=== PATIENT | female | born 1995 ===

== ENCOUNTER 2025-01-30 18:48 | Emergency (ER) | payer OTHER ==
[~2025-01-30] VITALS: Ht 165.1 cm; Wt 99.3 kg
[2025-01-30] MEDS ORDERED: EpiNEPhrine 1 MG/1 ML 1ML Vial ONE (19:15)
[2025-01-30] MEDS ORDERED: DiphenhydrAMINE HCl 50 MG/ML 1ML Vial IV ONE (19:15)
[2025-01-30] MEDS ORDERED: EpiNEPhrine 1 MG/1 ML 1ML Vial IM ONE (19:20)
[2025-01-30] MEDS ORDERED: EPIPEN0.3 MG/0.1 IM (21:08)
[2025-01-30] MEDS ORDERED: BENADRYL25 M1 PO (21:08)
[2025-01-30] MEDS ORDERED: PRED20 PO (21:08)
== END 2025-01-30 21:35 | disposition home or self-care (01) ==
LOC: ER 18:48
DX: T63.481A Toxic effect of venom of other arthropod, accidental (unintentional), initial encounter (principal); T78.2XXA Anaphylactic shock, unspecified, initial encounter; Z91.030 Bee allergy status; X58.XXXA Exposure to other specified factors, initial encounter
CPT/HCPCS: 96372-59; 96374; 96375; 99285-25; J0166; J0169; J1200; J2919